=== PATIENT | male | born 2000 | race Caucasian/White ===

== ENCOUNTER 2019-10-16 15:40 | Emergency (ER) | payer OTHER, BC ==
--- NOTE | 2019-10-16 16:09 | ER Document Report ---
ED General - General Chief Complaint: Rash Stated Complaint: POSSIBLE RASH/PENILE PROBLEM Time Seen by Provider: 10/16/19 16:08 Primary Care Provider: ABIGAIL PAULINO MD [ACTIVE STAFF] - Follow up as needed BETTINA COLLIER MD [ACTIVE STAFF] - Follow up as needed Mode of Arrival: Ambulatory Information source: Patient TRAVEL OUTSIDE OF THE [place] IN LAST 30 DAYS: No - HPI Onset: Other - over the last several days Onset/Duration: Gradual Quality of pain: No pain Severity: Mild Pain Level: Denies Associated symptoms: Other - itchy rash on extensor surfaces of elbows. Exacerbated by: Denies Relieved by: Denies Similar symptoms previously: No Recently seen / treated by doctor: No Notes: 19 year old male with with no significant PMH here in the ER for several days of a rash on his elbows, concern of possible erectile dysfunction (he is requesting to have his Testosterone level checked), and concern of possible ADHD. The patient is in the and he says he was told he needs to go to a private doctor to have the tests and treatments he is requesting. The patient has been outside a fair amount as of late and he thinks he has been around poison rubi and poison oak. The patient has tried calamine lotion some with mild relief of the skin irritation. The patient says he some times has trouble getting a full erection but he tells me 2/3 times it has happened he has been drinking. The patient also feels like he has ADHD since it is hard for him to concentrate. - Related Data Allergies/Adverse Reactions: Penicillins Allergy (Verified 10/16/19 15:52) Past Medical History - General Information source: Patient - Social History Smoking Status: Never Smoker Frequency of alcohol use: Occasional Drug Abuse: None Family History: Reviewed & Not Pertinent Patient has suicidal ideation: No Patient has homicidal ideation: No Past Surgical History: Reports: Hx Orthopedic Surgery Review of Systems - Review of Systems Constitutional: No symptoms reported EENT: No symptoms reported Cardiovascular: No symptoms reported Respiratory: No symptoms reported Gastrointestinal: No symptoms reported Genitourinary: No symptoms reported Male Genitourinary: Erectile dysfunction Musculoskeletal: No symptoms reported Skin: Rash Hematologic/Lymphatic: No symptoms reported Neurological/Psychological: No symptoms reported -: Yes All other systems reviewed and negative Physical Exam - Vital signs Vitals: Temp Pulse Resp BP Pulse Ox 98.9 F 72 14 159/76 H 100 10/16/19 15:48 10/16/19 15:48 10/16/19 15:48 10/16/19 15:48 10/16/19 15:48 - Notes Notes: GENERAL: Well-appearing, well-nourished and in no acute distress. HEAD: Atraumatic, normocephalic. EYES: Pupils equal round and reactive to light, extraocular movements intact, sclera anicteric, conjunctiva are normal. ENT: Normal external ears, nares patent, oropharynx clear without exudates. Moist mucous membranes. NECK: Normal range of motion, supple without lymphadenopathy or JVD. LUNGS: Breath sounds clear to auscultation bilaterally and equal. No wheezes rales or rhonchi. HEART: Regular rate and rhythm without murmurs, rubs or gallops. ABDOMEN: Soft, nontender, normoactive bowel sounds. No guarding, no rebound. No masses appreciated. EXTREMITIES: Normal range of motion, no pitting or edema. No clubbing or cyanosis. NEUROLOGICAL: Cranial nerves II through XII grossly intact. Normal speech, normal gait. PSYCH: Normal mood, normal affect. SKIN: Poison rubi rash (crusted lesions with erythema) on extensor surface of elbows with excoriations around the rash. Warm, Dry, normal turgor, no rashes or lesions noted. Course - Re-evaluation Re-evalutation: 10/16/19 16:52 The patient is here for a rash which is consistent with poison rubi or poison oak as well as for concern of Erectile Dysfunction and ADHD. Patient was told to use Calamine Lotion and oral Benadryl for his rash. Patient was told to follow up with a PCP for testing and management of possible Erecile Dysfunction and ADHD. Patient told to stop drinking as it seems like this has been the cause of his erection issues most of the time. - Vital Signs Vital signs: Temp Pulse Resp BP Pulse Ox 98.9 F 72 14 159/76 H 100 10/16/19 15:53 10/16/19 15:48 10/16/19 15:48 10/16/19 15:48 10/16/19 15:48 Discharge - Discharge Clinical Impression: Poison rubi, Erectile disorder, generalized, mild Condition: Stable Disposition: HOME, SELF-CARE Instructions: Poison Rubi ([facility]) Additional Instructions: Use Calamine Lotion on your poison rubi rash. Wash your rash is soap and water several times a day. Try not to itch the rash. If the rash is itchy use over the counter oral Benadryl. Follow up with a primary care doctor for work up and management of possible erectile dysfunction and for work up and treatment of possible ADHD. Several primary care doctors/clinics are listed in your discharge paperwork. Referrals: ABIGAIL PAULINO MD [ACTIVE STAFF] - Follow up as needed BETTINA COLLIER MD [ACTIVE STAFF] - Follow up as needed
[2019-10-16 16:40] LABS: APPEARANCE,URINE CLEAR; BILIRUBIN,URINE NEGATIVE (NEGATIVE); COLOR,URINE YELLOW; GLUCOSE, URINE NEGATIVE (NEGATIVE); KETONES,URINE NEGATIVE (NEGATIVE); LEUKOCYTE ESTERASE,URINE NEGATIVE (NEGATIVE); NITRITE,URINE NEGATIVE (NEGATIVE); PROTEIN,URINE NEGATIVE (NEGATIVE); URINE SPECIFIC GRAVITY 1.016; UROBILINOGEN,URINE NEGATIVE mg/dL (<2.0)
[2019-10-16 16:50] VITALS: BP 117/73
[2019-10-16 18:05] LABS: CHLAM PCR NOT DETECTED (NOT DETECT)
== END 2019-10-16 16:50 | disposition home or self-care (01) ==
LOC: ER 15:40
DX: L23.7 Allergic contact dermatitis due to plants, except food (principal); N52.9 Male erectile dysfunction, unspecified
CPT/HCPCS: 81001; 87491; 87591; 99283

== ENCOUNTER 2020-02-27 08:00 | Emergency (ER) | payer OTHER, BC ==
[2020-02-27] MEDS ORDERED: NORMAL SALINE 1000 ML 1,000 ML IV ONE (08:52)
[2020-02-27] MEDS ORDERED: KETOROLAC TROMETHAMINE INJ/PF 30 MG/1 ML SDV IV ONE (08:54)
[2020-02-27 09:02] LABS: ABSOLUTE EOSINOPHILS # (AUTO) 1.3 10^3/uL (0.0-0.6); ABSOLUTE LYMPHOCYTES (AUTO) 1.9 10^3/uL (0.5-4.7); ABSOLUTE MONOCYTES (AUTO) 0.6 10^3/uL (0.1-1.4); BASOPHILS % (AUTO) 0.2 % (0-2); EOSINOPHILS % (AUTO) 13.4 % (0-6); HEMATOCRIT 44.1 % (37.9-51.0); HEMOGLOBIN 15.5 g/dL (13.5-17.0); LYMPHOCYTES % (AUTO) 19.6 % (13-45); MEAN CORPUSCULAR HEMOGLOBIN 31.4 pg (27.0-33.4); MEAN CORPUSCULAR HGB CONC 35.1 g/dL (32.0-36.0); MEAN CORPUSCULAR VOLUME 90 fl (80-97); PLATELET COUNT 190 10^3/uL (150-450); RED BLOOD COUNT 4.93 10^6/uL (4.35-5.55); SEGMENTED NEUTROPHILS % (AUTO) 60.8 % (42-78); TOTAL CELLS COUNTED % (AUTO) 100 %; WHITE BLOOD COUNT 9.9 10^3/uL (4.0-10.5)
[2020-02-27 09:18] LABS: ALBUMIN 4.2 g/dL (3.5-5.0); ALKALINE PHOSPHATASE 75 U/L (38-126); ANION GAP 8 (5-19); ASPARTATE AMINO TRANSFERASE 25 U/L (17-59); BILIRUBIN,DIRECT 0.2 mg/dL (0.0-0.4); BILIRUBIN,TOTAL 0.3 mg/dL (0.2-1.3); BLOOD UREA NITROGEN 26 mg/dL (7-20); CARBON DIOXIDE 27 mmol/L (22-30); CHLORIDE 104 mmol/L (98-107); GLUCOSE 101 mg/dL (75-110); POTASSIUM 4.1 mmol/L (3.6-5.0); TOTAL PROTEIN 6.8 g/dL (6.3-8.2)
--- NOTE | 2020-02-27 09:23 | ER Document Report ---
ED General - General Chief Complaint: Abdominal Pain Stated Complaint: ABDOMINAL PAIN Time Seen by Provider: 02/27/20 08:33 TRAVEL OUTSIDE OF THE [place] IN LAST 30 DAYS: No - HPI Notes: Patient is a 19-year-old male and presents with diffuse abdominal pain for the past week. Patient reports his symptoms worsened 2 days ago. He states his pain is constant but fluctuates in intensity. He reports soft stools, nausea, decreased appetite, but denies vomiting, and fever. Patient endorses taking ibuprofen and Kapecet for pain relief but states it only dulls the pain for 20 minutes or so. Patient denies any medical history. - Related Data Allergies/Adverse Reactions: Penicillins Allergy (Verified 02/27/20 08:40) Past Medical History - General Information source: Patient - Social History Smoking Status: Never Smoker Frequency of alcohol use: Occasional Drug Abuse: None Family History: Reviewed & Not Pertinent - Medical History Medical History: Negative Past Surgical History: Reports: Hx Orthopedic Surgery, Hx Tonsillectomy Review of Systems - Review of Systems Constitutional: No symptoms reported EENT: No symptoms reported Cardiovascular: No symptoms reported Respiratory: No symptoms reported Gastrointestinal: See HPI Genitourinary: No symptoms reported Male Genitourinary: No symptoms reported Musculoskeletal: No symptoms reported Skin: No symptoms reported Hematologic/Lymphatic: No symptoms reported Neurological/Psychological: No symptoms reported Physical Exam - Vital signs Vitals: Temp Pulse Resp BP Pulse Ox 98.0 F 59 L 16 134/79 H 99 02/27/20 08:08 02/27/20 08:08 02/27/20 08:08 02/27/20 08:08 02/27/20 08:08 - Notes Notes: PHYSICAL EXAMINATION: VITALS: Vitals reviewed and within normal limits. GENERAL: Well-appearing, well-nourished and in no acute distress. HEAD: Atraumatic, normocephalic. ENT: Nares patent. Moist mucous membranes. NECK: Normal range of motion, supple without lymphadenopathy. LUNGS: Breath sounds clear to auscultation bilaterally and equal. No wheezes rales or rhonchi. HEART: Regular rate and rhythm without murmurs. ABDOMEN: Soft, nontender, normoactive bowel sounds. No guarding, no rebound. No masses appreciated. EXTREMITIES: Normal range of motion, no pitting or edema. No cyanosis. NEUROLOGICAL: No focal neurological deficits. Moves all extremities spontaneously and on command. PSYCH: Normal mood, normal affect. SKIN: Warm, Dry, normal turgor, no rashes or lesions noted. Course - Re-evaluation Re-evalutation: Patient is a 19-year-old male who presents with abdominal pain for the past week. 1 L NS bolus and 15 mg Toradol given. Patient continues to report pain after toradol given, Bentyl 20mg IM and KUB ordered. KUB shows nonobstructive bowel gas pattern with a moderate colonic stool burden. Results discussed with patients and enema recommended. Patient agrees and soap suds enema with mineral oil ordered. Enema was well-tolerated with no complications. Patient reports feeling better. Patient will be discharged home with return precautions and follow up instructions. - Vital Signs Vital signs: Temp Pulse Resp BP Pulse Ox 98.0 F 54 L 16 134/71 H 99 02/27/20 08:08 02/27/20 11:30 02/27/20 11:30 02/27/20 11:30 02/27/20 11:30 - Laboratory Result Diagrams: 02/27/20 08:29 02/27/20 08:26 Laboratory results interpreted by me: 02/27/20 02/27/20 02/27/20 08:26 08:29 09:39 Eos % (Auto) 13.4 H Absolute Eos (auto) 1.3 H BUN 26 H Urine Protein 30 H - Diagnostic Test Radiology reviewed: Image reviewed, Reports reviewed Radiology results interpreted by me: Per Radiologist: KUB X-Ray 02/27/20 09:46 IMPRESSION: Nonobstructive bowel gas pattern with a moderate colonic stool burden. Discharge - Discharge Clinical Impression: Constipation Qualifiers: Constipation type: unspecified constipation type Qualified Code(s): K59.00 - Constipation, unspecified Abdominal pain Qualifiers: Abdominal location: generalized Qualified Code(s): R10.84 - Generalized abdominal pain Condition: Stable Disposition: HOME, SELF-CARE Additional Instructions: Increase fiber. Drink plenty of fluids. Constipation Constipation is a common problem. It is especially likely as you get older. Constipation is a common cause of abdominal pain, but sometimes causes no symptoms at all. Causes of constipation include certain medications, dehydration, diets, inactivity, and low-fiber intake. Rarely, it can be a symptom of underlying disease. The physician has evaluated you for this. Avoid constipation by eating a diet high in fiber, fruits, and vegetables. Drink plenty of liquids. Get regular exercise. If possible, avoid constipating medicines like narcotic pain medication. Some vitamin tablets can cause constipation. Stool softeners may be needed for difficult cases. An excellent stool softener is Konsyl which is available at [employer], and [employer]. Just add a teaspoon to a glass of pineapple or orange juice daily or twice a day if needed. Laxatives are useful for occasional constipation. You should use them only when necessary. Too-frequent use can make your bowels dependent on them. Some over the counter laxatives available without prescription are: Milk of Magnesia, 1-2 tablespoons twice a day Dulcolax, 5 mg pill or 10 mg suppository. Citrate of Magnesia, 4-5 ounces a day for a day or two For acute constipation, Fleet's Enemas and Dulcolax suppositories are helpful. Chronic, machine engraver use of laxatives or enemas is not a good idea. Your bowel may become dependant on them. You do not need to have a bowel movement every day. Many people do fine with a bowel movement every three or four days. You should call your doctor or return for re-evaluation if you pass blood in the stool, or if you develop fever or increasing abdominal pain.
[2020-02-27] MEDS ORDERED: DICYCLOMINE HCL INJ 20 MG/2 ML AMPULE IM ONE (09:45)
[2020-02-27 09:59] LABS: APPEARANCE,URINE CLEAR; BILIRUBIN,URINE NEGATIVE (NEGATIVE); COLOR,URINE YELLOW; GLUCOSE, URINE NEGATIVE (NEGATIVE); KETONES,URINE NEGATIVE (NEGATIVE); LEUKOCYTE ESTERASE,URINE NEGATIVE (NEGATIVE); NITRITE,URINE NEGATIVE (NEGATIVE); PROTEIN,URINE 30 mg/dL (NEGATIVE); UROBILINOGEN,URINE NEGATIVE mg/dL (<2.0)
--- NOTE | 2020-02-27 10:13 | RADIOLOGY REPORT (SQ) ---
EXAM DESCRIPTION: KUB/ABDOMEN (SINGLE VIEW) IMAGES COMPLETED DATE/TIME: 02/27/2020 10:01 am REASON FOR STUDY: abdominal pain COMPARISON: None. NUMBER OF VIEWS: Two views. TECHNIQUE: Supine and erect/decubitus radiographic images of the abdomen acquired. LIMITATIONS: None. FINDINGS: FREE AIR: None. No abnormal gas collections. LUNG BASES: Clear. BOWEL GAS PATTERN: Nonobstructive pattern. No dilated loops or air fluid levels. Moderate colonic st ool burden. CALCIFICATIONS: No suspicious calcifications. SOFT TISSUES: No gross mass or suggestion of organomegaly. HARDWARE: None in the abdomen. BONES: No acute fracture. No worrisome bone lesions. OTHER: No other significant finding. IMPRESSION: Nonobstructive bowel gas pattern with a moderate colonic stool burden. TECHNICAL DOCUMENTATION: JOB ID: [id number] 2010 [employer]- All Rights Reserved Reading location - IP/workstation name: [email or web address]
[2020-02-27] MEDS ORDERED: MINERAL OIL 30 ML UDCUP PR ONE (10:18)
[2020-02-27 11:32] VITALS: BP 134/71
== END 2020-02-27 11:32 | disposition home or self-care (01) ==
LOC: ER 08:00
DX: K59.00 Constipation, unspecified (principal); R10.84 Generalized abdominal pain; R11.0 Nausea; R63.0 Anorexia; Z88.0 Allergy status to penicillin
CPT/HCPCS: 99284; 96372; 96361; 96374; 36415; 83690; 85025; 80053; 81001; 74018; J0500; J1885; J3490; J7030

== ENCOUNTER 2020-04-29 16:16 | Emergency (ER) | payer OTHER, BC ==
[2020-04-29] MEDS ORDERED: CLINDAMYCIN 600 MG/D5W RTU 600 MG/50 ML RTUPB IV ONE (17:03)
[2020-04-29] MEDS ORDERED: HYDROCODONE/ACETAMINOPHEN 5-325 MG TABLET PO ONE (17:03)
--- NOTE | 2020-04-29 17:05 | ER Document Report ---
ED Medical Screen (RME) - General Chief Complaint: Dog Bite Stated Complaint: DOG BITE TO RIGHT LEG Time Seen by Provider: 04/29/20 16:57 Mode of Arrival: Ambulatory Information source: Patient Notes: HPI; 19-year-old male presents to the emergency room complaining of worsening pain, erythema, and swelling to his right lower leg after being bit by a family dog approximately 2 weeks ago. States the dog's vaccines are up-to-date. Patient's tetanus is up-to-date. States he did not get seen until 2 days after the injury at base states he was given Neosporin and ibuprofen which he states h as not been helping. has been taking 2000 mg of ibuprofen 3 times a day for the pain. Is able to walk but states is painful. He denies any fevers at home. PE: Alert and oriented x3. Mild distress noted. There is erythema and swelling noted to the right lower leg. There are 4 puncture wounds noted that are erythematous, warm and tender to palpation. No active discharge or draining no ivania. Positive right pedal pulse. Lungs: Clear to auscultation without rales, rhonchi, wheezes. Heart: Regular rate rhythm without murmurs, rubs, gallops. I have greeted and performed a rapid initial assessment of this patient. A comprehensive ED assessment and evaluation of the patient, analysis of test results and completion of the medical decision making process will be conducted by additional ED providers. I have specifically instructed the patient or family members with the patient to immediately return to any nursing staff should anything change in the patient's condition or with their chief complaint. TRAVEL OUTSIDE OF THE [place] IN LAST 30 DAYS: No - Related Data Allergies/Adverse Reactions: Penicillins Allergy (Verified 04/29/20 16:41) Past Medical History - Social History Chew tobacco use (# tins/day): No Frequency of alcohol use: None Drug Abuse: None Past Surgical History: Reports: Hx Orthopedic Surgery, Hx Tonsillectomy Physical Exam - Vital signs Vitals: Temp Pulse Resp BP Pulse Ox 99.8 F 80 16 141/68 H 99 04/29/20 16:35 04/29/20 16:35 04/29/20 16:35 04/29/20 16:35 04/29/20 16:35 Course - Vital Signs Vital signs: Temp Pulse Resp BP Pulse Ox 99.8 F 80 16 141/68 H 99 04/29/20 16:35 04/29/20 16:35 04/29/20 16:35 04/29/20 16:35 04/29/20 16:35
--- NOTE | 2020-04-29 17:42 | RADIOLOGY REPORT (SQ) ---
EXAM DESCRIPTION: TIBIA FIBULA RIGHT IMAGES COMPLETED DATE/TIME: 04/29/2020 4:21 pm REASON FOR STUDY: injury. They had by a dog in the lower leg. COMPARISON: None. NUMBER OF VIEWS: Two views. TECHNIQUE: Two radiographic images acquired of the right tibia and fibula to include the knee and an kle in at least one projection. LIMITATIONS: None. FINDINGS: MINERALIZATION: Normal. BONES: No acute fracture or dislocation. No worrisome bone lesions. SOFT TISSUES: No obvious swelling or foreign body. OTHER: No other significant finding. IMPRESSION: No radiographic abnormality of the right lower leg. No radiopaque foreign body. TECHNICAL DOCUMENTATION: JOB ID: [id number] 2010 [employer]- All Rights Reserved Reading location - IP/workstation name: [email or web address]
[2020-04-29 18:32] LABS: ABSOLUTE BASOPHILS # (AUTO) 0.1 10^3/uL (0.0-0.2); ABSOLUTE EOSINOPHILS # (AUTO) 0.1 10^3/uL (0.0-0.6); ABSOLUTE LYMPHOCYTES (AUTO) 1.4 10^3/uL (0.5-4.7); ABSOLUTE MONOCYTES (AUTO) 0.3 10^3/uL (0.1-1.4); ABSOLUTE NEUT (AUTO) 4.2 10^3/uL (1.7-8.2); BASOPHILS % (AUTO) 0.8 % (0-2); EOSINOPHILS % (AUTO) 2.4 % (0-6); HEMATOCRIT 41.6 % (37.9-51.0); HEMOGLOBIN 14.8 g/dL (13.5-17.0); LYMPHOCYTES % (AUTO) 23.3 % (13-45); MEAN CORPUSCULAR HEMOGLOBIN 30.9 pg (27.0-33.4); MEAN CORPUSCULAR HGB CONC 35.5 g/dL (32.0-36.0); MEAN CORPUSCULAR VOLUME 87 fl (80-97); MONOCYTES % (AUTO) 5.6 % (3-13); PLATELET COUNT 151 10^3/uL (150-450); RED BLOOD COUNT 4.78 10^6/uL (4.35-5.55); RED CELL DISTRIBUTION WIDTH 12.7 % (11.5-14.0); SEGMENTED NEUTROPHILS % (AUTO) 67.9 % (42-78); TOTAL CELLS COUNTED % (AUTO) 100 %; WHITE BLOOD COUNT 6.1 10^3/uL (4.0-10.5)
[2020-04-29 18:39] LABS: ALBUMIN 4.2 g/dL (3.5-5.0); ALKALINE PHOSPHATASE 62 U/L (38-126); ANION GAP 9 (5-19); ASPARTATE AMINO TRANSFERASE 52 U/L (17-59); BILIRUBIN,TOTAL 0.5 mg/dL (0.2-1.3); BLOOD UREA NITROGEN 17 mg/dL (7-20); CALCIUM 9.4 mg/dL (8.4-10.2); CARBON DIOXIDE 30 mmol/L (22-30); CHLORIDE 98 mmol/L (98-107); GLUCOSE 110 mg/dL (75-110); POTASSIUM 4.2 mmol/L (3.6-5.0); TOTAL PROTEIN 6.9 g/dL (6.3-8.2)
--- NOTE | 2020-04-29 18:59 | ER Document Report ---
ED Animal Bite - General Chief Complaint: Dog Bite Stated Complaint: DOG BITE TO RIGHT LEG Time Seen by Provider: 04/29/20 16:57 Mode of Arrival: Ambulatory Notes: 19-year-old male presents to the emergency department with a history of a dog bite to his right lower extremity. Apparently he was bitten by the dog on No vember 1, it is his Labrador retriever. He did not seek medical care at that time and has since developed increasing pain and swelling at the site of the dog puncture wounds. He denies fever, chills or other associated symptoms. He is allergic to penicillin. TRAVEL OUTSIDE OF THE [place] IN LAST 30 DAYS: No - Related Data Allergies/Adverse Reactions: Penicillins Allergy (Verified 04/29/20 16:41) Past Medical History - General Information source: Patient - Social History Smoking Status: Never Smoker Chew tobacco use (# tins/day): No Frequency of alcohol use: None Drug Abuse: None Family History: Reviewed & Not Pertinent Past Surgical History: Reports: Hx Orthopedic Surgery, Hx Tonsillectomy Review of Systems - Review of Systems Notes: Constitutional: Negative for fever. HENT: Negative for sore throat. Eyes: Negative for visual changes. Cardiovascular: Negative for chest pain. Respiratory: Negative for shortness of breath. Gastrointestinal: Negative for abdominal pain, vomiting or diarrhea. Genitourinary: Negative for dysuria. Musculoskeletal: See HPI Skin: Negative for rash. Neurological: Negative for headaches, weakness or numbness. 10 point ROS negative except as marked above and in HPI. Physical Exam - Vital signs Vitals: Temp Pulse Resp BP Pulse Ox 99.8 F 80 16 141/68 H 99 04/29/20 16:35 04/29/20 16:35 04/29/20 16:35 04/29/20 16:35 04/29/20 16:35 - Notes Notes: PHYSICAL EXAMINATION: Physical Exam: General: Well-nourished well-developed 19-year-old male in no acute distress HEENT: NC/AT, pupils equal round and reactive to light, MM moist,nares clear, oropharynx clear, airway patent Neck: supple, no adenopathy, no masses. Good range of motion Lungs: clear, no wheezing, no rales no rhonchi CVS: Regular rate and rhythm no murmur gallop or rub Abdomen: Soft, active, nontender, no masses, no hepatosplenomegaly Ext: Right lower extremity with 4 separate puncture wounds on the anterior surface of the lower tibia. Mild erythema with close puncture sites no drain age, no obvious cellulitis or abscess. Neuro: Alert and responsive, moving all 4 extremities on command, cranial nerves intact, no focal findings Skin: Intact no open lesions, no rash Course - Re-evaluation Re-evalutation: 04/29/20 18:57 Patient presents with dog bite to the right lower extremities which is 13 days ago. The puncture wounds do show signs of infection. Patient also complains of some pain in the site. X-ray negative for signs of osteomyelitis. He is given prescription for Ceftin 500 mg twice daily and clindamycin 300 mg 3 times a day medications will be given for for 10 days. He is given a prescription for ibuprofen also. I have encouraged him to use a warm compress to the area puncture wounds and to follow-up with his primary care doctor as needed. The patient acknowledges understanding of this plan and is in agreement. 04/29/20 18:59 04/29/20 19:15 - Vital Signs Vital signs: Temp Pulse Resp BP Pulse Ox 99.8 F 80 16 141/68 H 99 04/29/20 16:35 04/29/20 16:35 04/29/20 16:35 04/29/20 16:35 04/29/20 16:35 - Laboratory Result Diagrams: 04/29/20 18:00 04/29/20 18:00 - Diagnostic Test Radiology reviewed: Image reviewed, Reports reviewed Radiology results interpreted by me: 04/29/20 18:59 Tibia/Fibula X-Ray 04/29/20 17:02 IMPRESSION: No radiographic abnormality of the right lower leg. No radiopaque foreign body. Discharge - Discharge Clinical Impression: Dog bite of right lower leg with infection Qualifiers: Encounter type: initial encounter Qualified Code(s): S81.851A - Open bite, right lower leg, initial encounter; L08.9 - Local infection of the skin and subcutaneous tissue, unspecified; W54.0XXA - Bitten by dog, initial encounter Condition: Good Disposition: HOME, SELF-CARE Instructions: Animal Bites ([facility]) Additional Instructions: You were seen in the emergency department for a dog bite injury which occurred on April 16. These puncture wounds may have infection. The x-ray was negative for bone involvement. You are given prescriptions for doxycycline and Flagyl, please take the medications as prescribed. You are also given prescriptions for ibuprofen 800 mg every 8 hours for pain. You were dispensed a 6 tablet dose pack of Mears to use for pain in the acute phase. Please follow- up with your doctors as needed HOME CARE INSTRUCTIONS & INFORMATION: Thank you for choosing us for your medical needs. We hope you're satisfied with the care you received. After you leave, you must properly care for your problem and, at the same time, observe its progress. Any condition can change. Some illnesses can change rapidly over hours or days. If your condition worsens, return to the Emergency Department or see your physician promptly. ABOUT YOUR X-RAYS AND EKG'S: If you had an EKG or X-rays taken, they have been read by the Emergency Physician. The X-rays and EKG's will also be read by a Radiologist or Pipe Turner within 24 hours. If discrepancies are noted, you will be notified by telephone. Please be certain the ED has a correct telephone number & address where you can be reached. Also, realize that some fractures or abnormalities do not show up on initial X-rays. If your symptoms continue, see your physician. ABOUT YOUR LABORATORY TEST: If you had laboratory tests, the results have been reviewed by the Emergency Physician. Some test results (for example cultures) may not be available for several days. You will be contacted if any test result shows you need additional treatment. Please be certain the ED has a correct telephone number and address where you can be reached. ABOUT YOUR MEDICATIONS: You will receive instructions on how to take your medicine on the prescription label you receive. Additional information may be provided by the Pharmacy. If you have questions afterwards, call the ED for clarification or further instructions. Some prescribed medications may cause drowsiness. Do not perform tasks such as driving a car or operating machinery without consulting your Pharmacist. If you feel you need a refill of pain medication, your condition will need re-evaluation. Please do not call for a refill of any medication. ABOUT YOUR SIGNATURE: Signature of this document acknowledges to followin. Understanding that you received emergency treatment and that you may be released before al medical problems are known or treated. Please be certain the ED has a correct phone number & address where you can be reached. 2. Acknowledgement that you will arrange for follow-up care as recommended. 3. Authorization for the Emergency Physician to provide information to your follow-up Physician in order to maximize your care. AT ANY TIME, IF YOUR SYMPTOMS CHANGE SIGNIFICANTLY OR WORSEN OR YOU DEVELOP NEW SYMPTOMS, RETURN TO THE EMERGENCY DEPARTMENT IMMEDIATELY FOR RE-EVALUATION. OUR GOAL IS TO PROVIDE EXCELLENT MEDICAL CARE! WE HOPE THAT WE HAVE MET YOUR EXPECTATIONS DURING YOUR EMERGENCY DEPARTMENT VISIT AND THAT YOU FEEL YOU HAVE RECEIVED EXCELLENT CARE! Prescriptions: Cefuroxime Axetil [Ceftin 500 mg Tablet] 1 tab PO BID #20 tablet Clindamycin HCl 300 mg PO TID #30 capsule Ibuprofen [Motrin 800 mg Tablet] 800 mg PO Q8H PRN #30 tab PRN Reason:
[2020-04-29] MEDS ORDERED: DIPH/PERTUSS(ACELL)/TETANUS VAC/PF 0.5 ML SYR (>=10YO) IM ONE (19:14)
[2020-04-29] MEDS ORDERED: HYDROCODONE/ACETAMINOPHEN 5-325 MG (6 TAB/ER DISP) PO PRN (19:14)
[2020-04-29 19:43] VITALS: BP 136/60
== END 2020-04-29 20:01 | disposition home or self-care (01) ==
LOC: ER 16:16
DX: S81.851A Open bite, right lower leg, initial encounter (principal); L08.9 Local infection of the skin and subcutaneous tissue, unspecified; W54.0XXA Bitten by dog, initial encounter; Y93.K9 Activity, other involving animal care; Z88.0 Allergy status to penicillin; Z23 Encounter for immunization
CPT/HCPCS: 36415; 80053; 83605; 85025; 87040; 90471; 90715; 96365; 99284